=== PATIENT | male | born 1975 | race African-American/Black ===

== ENCOUNTER 2018-08-03 02:19 | Inpatient (IN) | payer BC ==
[2018-08-03 02:44] LABS: #Basophils 0.1 thou/uL (0.0-0.2); #Eosinphils 0.3 thou/uL (0.0-0.7); #Lymphocytes 4.5 thou/uL (1.20-3.40); #Monocytes 0.9 thou/uL (0.11-0.59); #Neutrophils 5.6 thou/uL (1.40-6.50); %Basophils 1.3 % (0.0-1.0); %Eosinophils 2.8 % (0.0-10.0); %Lymphocytes 39.2 % (21.0-51.0); %Neutrophils 48.7 % (42.0-75.0); Hemoglobin 16.1 g/dL (14.0-18.0); Mean Corpuscular Hemoglobin 29.1 pg (27.0-31.0); Mean Corpuscular Volume 88.2 fL (78.0-98.0); Mean Platelet Volume 7.9 fL (7.4-10.4); Platelet Count 213 thou/uL (130-400); RBC Distribution Width 13.4 % (11.5-14.5); Red Blood Cell (RBC) Count 5.54 mill/uL (4.70-6.10); White Blood Cell (WBC) Count 11.6 thou/uL (4.8-10.8)
[2018-08-03 03:06] LABS: ALT (SGPT) 43 U/L (8-55); AST (SGOT) 32 U/L (5-34); Albumin 4.6 g/dL (3.5-5.0); Alkaline Phosphatase 102 U/L (40-150); Anion Gap 13 mmol/L (10-20); BUN (Urea Nitrogen) 12 mg/dL (8.9-20.6); Bilirubin, Total 0.4 mg/dL (0.2-1.2); CK (CPK) 1022 U/L (30-200); Calc. Creatinine Clearance 0 mL/min (70-130); Calcium 9.6 mg/dL (7.8-10.44); Carbon Dioxide 26 mmol/L (22-29); Chloride 105 mmol/L (98-107); Estimated GFR-MDRD 81; Globulin 3.3 g/dL (2.4-3.5); Glucose 95 mg/dL (70-105); Lipase 44 U/L (8-78); Potassium 3.9 mmol/L (3.5-5.1); Protein, Total 7.9 g/dL (6.0-8.3); Sodium 140 mmol/L (136-145)
[2018-08-03 03:11] LABS: CKMB 4.4 ng/mL (0-6.6); Troponin I Less than 0.010 ng/mL (< 0.028)
[2018-08-03 03:48] LABS: PTT 35.7 SEC (22.9-36.1); Prothrombin Time 13.2 SEC (12.0-14.7)
[2018-08-03] MEDS ORDERED: Labetalol HCl 100 MG/20 ML VIAL ONE (04:32)
[2018-08-03] MEDS ORDERED: Ondansetron HCl/PF 4 MG/2 ML Vial IVP PRN (05:36)
[2018-08-03] MEDS ORDERED: Ondansetron ODT 4 MG TAB PO PRN (05:36)
[2018-08-03] MEDS ORDERED: Acetaminophen 325 MG TAB PO PRN (05:36)
[2018-08-03] MEDS ORDERED: Nitroglycerin 50 MG/250 ML BOT 250 ML IVPB SCH (05:45)
[2018-08-03 05:54] LABS: Troponin I Less than 0.010 ng/mL (< 0.028)
[2018-08-03 06:52] VITALS: BMI 37.0
--- NOTE | 2018-08-03 06:55 | HP ---
CHIEF COMPLAINT: Chest pain. HISTORIAN: The patient and patient's . HISTORY OF PRESENT ILLNESS: This is a 42-year-old male with no significant past medical history, pre senting to our ED with chief complaint of chest pain, which radiates to the left arm with tingling an d numbness in the arm and the patient is also complaining of double vision, the symptoms started abou t an hour ago. 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 Upon arrival , the patient was sent to CT and after coming out of the CT, patient was found to have weakness in th e left arm and left leg. Due to this, patient was given tPA in the ED and patient's blood pressure w as monitored in the ED to make sure the diastolic blood pressure is less than 110. I was called to e valuate the patient at that time. At this time, patient denies any fever, nausea, vomiting, chest pa in, but admits to having some weakness of the left upper extremity and left lower extremity. Of note , the patient states that he has been having bloody bowel movements about 2 weeks ago, which got wors e and filled out the toilet bowl every time that he went. REVIEW OF SYSTEMS: Positive for left arm, left leg weakness, double vision, chest pain, otherwise as documented in the HPI, all other systems were reviewed and were negative. PAST MEDICAL HISTORY: No significant past medical history. FAMILY HISTORY: The patient states that his uncles had diabetes, hypertension. Mom has cancer. PAST SURGICAL HISTORY: No surgical history. PSYCHIATRIC HISTORY: The patient does not document any psych history. SOCIAL HISTORY: Patient drinks occasionally. Patient quit a while back, he was a former smoker. Ken rosalvaralph does not do any illicit drugs. PHYSICAL EXAMINATION: VITAL SIGNS: By the bedside, patient's blood pressure was 153/110, pulse was 64, respiratory rate of 16, temperature of 97.8, oxygen saturation of 98 on room air. GENERAL: Patient is lying in bed comfortably, does not appear to be in acute distress. The patient is speaking full sentences. HEENT: Normocephalic, atraumatic. Pupils are equal, round, and reactive to light. Extraocular move ments are intact. The patient did have some blood noted in his oral mucosa. Mucous membranes are mo ist. NECK: No JVD. Trachea is midline. LUNGS: Clear to auscultation bilaterally. No wheezing, no rales appreciated. CARDIOVASCULAR: Positive S1, S2. Regular rate and rhythm. No murmurs, no gallops, no rubs apprecia ramirez. ABDOMEN: Obese abdomen, nontender, nondistended. No ecchymosis, no peritoneal signs. EXTREMITIES: Lower extremity: The patient did have some leg weakness at the left lower extremity. The patient is not able to elevate the leg. The patient is able to elevate the left upper extremity, has 4/5 strength in the upper extremities. Otherwise, the patient did have 5/5 right upper extremit y strength and right lower extremity strength. The patient did have good pulses bilaterally. NEUROLOGIC: Cranial nerves II through XII grossly intact. There are no focal neurologic deficits no ramirez. PSYCHIATRIC: Alert, oriented x3, and normal affect. LABORATORY DATA: White count is 11.6, hemoglobin is 16.1, platelet is 213,000. Glucose is 91. Lipa se 44. CPK is 1022. Sodium 140, potassium 3.9, chloride 105, carbon dioxide of 26, creatinine of 1. 20, glucose of 95. PTT is 35.7. INR is 1.0. Troponin is less than 0.010, CK-MB is 4.4. IMAGING: CT of the brain ordered, there is no read at this time, but upon me reading it, patient castaneda s not have any ischemic or any hemorrhagic stroke noted. We will follow up on the official read. Ch est x-ray, no acute cardiopulmonary process, we will await official read. ASSESSMENT AND PLAN: This is a 42-year-old male being admitted for; 1. Left arm weakness and left leg weakness with some numbness and tingling sensation. At this point , we will rule out stroke. The patient has been given tPA. We will admit the patient to ICU to be m onitored. I have ordered a nitro drip to be given if patient's blood pressure is above 185/110. We will try and titrate and maintain blood pressure, so that diastolic is going to be less than 110 and we will keep the blood pressure between 140-185. I have put in the parameters in nursing communicati on. We will continue to monitor the patient very closely with consulting Neurology. We will follow up per neurologist's recommendation of started atorvastatin per protocol and we will start patient on aspirin to be given tomorrow since tPA has already been given at this time. We will monitor the pat ient for any signs of bleed and I have ordered for MRA with angio. We will continue to monitor the p atient very, very closely, neuro checks, seizure precautions per protocol, consulted the stroke team. 2. Deep venous thrombosis and gastrointestinal prophylaxis. We will do sequential compression devic es and will do Pepcid for gastrointestinal prophylaxis.
--- NOTE | 2018-08-03 07:28 | RAD ---
AP VIEW CHEST: Date: 08/03/18 INDICATION: 42-year-old male with chest pain. COMPARISON: None. FINDINGS: The lungs are clear. Cardiomediastinal silhouette is within normal limits. No acute osseous abnormali ty is evident. IMPRESSION: No acute cardiopulmonary abnormality. POS: [facility]
--- NOTE | 2018-08-03 07:49 | CON ---
DATE OF CONSULTATION: 08/03/2018 REASON FOR CONSULTATION: Stroke. HISTORY OF PRESENT ILLNESS: The patient is a 42-year-old male who presented with left arm and left l eg weakness yesterday which started about an hour prior to admission to the hospital. He was given t -PA around 4:30 a.m. this morning. He was placed in the ICU per protocol. Initially he was hyperten sive, but his blood pressures trended down. He is currently not on a drip. He denies any previous h istory of hypertension, heart disease or diabetes mellitus. PAST MEDICAL HISTORY: Essentially negative. ALLERGIES: None. SOCIAL HISTORY: Occasionally drinks alcohol. Denies tobacco abuse. Denies illicit drugs. FAMILY MEDICAL HISTORY: He denies a stroke. REVIEW OF SYSTEMS: Remarkable for the arm weakness. PHYSICAL EXAMINATION: VITAL SIGNS: Blood pressure currently 131/86, pulse 58, O2 sat 98%, respiratory rate 17. HEENT: His pupils are equally reactive to light. Tongue protrudes midline. No evidence of facial d felix on either side. NECK: No adenopathy or JVD. No carotid bruits noted. CARDIOVASCULAR: S1, S2 regular without audible murmur. LUNGS: Clear without wheezing or rhonchi. ABDOMEN: Soft, nontender, nondistended. EXTREMITIES: No clubbing, cyanosis, or edema. NEUROLOGIC: Cranial nerves II-XII are grossly intact. He has 3/5 motor strength left arm and left l eg, 5/5 motor strength right arm and right leg. LABORATORY AND X-RAY FINDINGS: Sodium 140, potassium 3.9, BUN 12, creatinine 1.2, glucose 95. CPK 1 022. Troponin 0.01. INR is 1.0, PTT 35.7, white blood cell 11.6, hematocrit 48.9, platelet count 21 3. Chest x-ray showed no evidence of mass, effusion, or infiltrate. Result of the brain CT is pending. ASSESSMENT: 1. 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 2. Hypertension. PLAN: 1. Continue to observe in the ICU. Initiate physical therapy and stroke rehab. 2. Would not use nitroglycerin drip for blood pressure control. If anything is needed, then I would suggest nicardipine. 3. Start IV fluids, given the patient's CPK is elevated. 4. Check urine drug screen to rule out cocaine use.
--- NOTE | 2018-08-03 08:55 | CT ---
PRELIMINARY REPORT/[facility]/EMERGENTY AFTER-HOURS PROCEDURE Addendum created by Paul Snow MD on 08/03/2018 4:04 AM Central Time ([place] & [place]) THIS REPORT CONTAINS FINDINGS THAT MAY BE CRITICAL TO PATIENT CARE. The findings were verbally commun icated via telephone conference with SHAREE WILLS at 4:04 AM CDT on 08/03/2018. The findings were a cknowledged and understood. Initial Report created on 08/03/2018 3:59 AM Central Time ([place] & [place]) CT Angiography Head With Intravenous Contrast CLINICAL HISTORY: 42 years old, male; Signs and symptoms; Weakness; Patient HX: stroke alert chest pain began aroun d 0100, patients left arm and leg were tingling, increased left sided weakness and left sided facial droop around 0315 TECHNIQUE: Axial computed tomographic angiography images of the head with intravenous contrast using CT angiogra phy protocol. MIP reconstructed images were created and reviewed. Coronal and sagittal reformatted images were created and reviewed. COMPARISON: No relevant prior studies available. FINDINGS: Right internal carotid artery: No acute findings. Intracranial segment is patent with no significant stenosis. No aneurysm. Right anterior cerebral artery: Normal. No occlusion or significant stenosis. No aneurysm. Right middle cerebral artery: Normal. No occlusion or significant stenosis. No aneurysm. Right posterior cerebral artery: Normal. No occlusion or significant stenosis. No aneurysm. Right vertebral artery: Normal as visualized. Left internal carotid artery: No acute findings. Intracranial segment is patent with no significant s tenosis. No aneurysm. Left anterior cerebral artery: Normal. No occlusion or significant stenosis. No aneurysm. Left middle cerebral artery: Normal. No occlusion or significant stenosis. No aneurysm. Left posterior cerebral artery: Normal. No occlusion or significant stenosis. No aneurysm. Left vertebral artery: Normal as visualized. Basilar artery: Normal. No occlusion or significant stenosis. No aneurysm. IMPRESSION: Normal head CTA. CT Angiography Neck With Intravenous Contrast TECHNIQUE: Axial computed tomographic angiography images of the neck with intravenous contrast using CT angiogra phy protocol. MIP reconstructed images were created and reviewed. Coronal and sagittal reformatted images were created and reviewed. COMPARISON: CT Brain WO Con 08/03/2018 2:42 AM FINDINGS: VASCULATURE: Right common carotid artery: Normal. No significant stenosis. No dissection or occlusion. Right internal carotid artery: Normal. Extracranial segment is patent with no significant stenosis. N o dissection or occlusion. Right external carotid artery: Normal. No occlusion. Right vertebral artery: Normal. No significant stenosis. No dissection or occlusion. Left common carotid artery: Normal. No significant stenosis. No dissection or occlusion. Left internal carotid artery: Normal. Extracranial segment is patent with no significant stenosis. No dissection or occlusion. Left external carotid artery: Normal. No occlusion. Left vertebral artery: Normal. No significant stenosis. No dissection or occlusion. NECK: Bones/joints: No acute fracture. No dislocation. Soft tissues: Normal as visualized. No mass. CAROTID STENOSIS REFERENCE USING NASCET CRITERIA: % ICA stenosis = (1 - narrowest ICA diameter/diameter of distal cervical ICA) x 100. Mild - <50% stenosis. Moderate - 50-69% stenosis. Severe - 70-94% stenosis. Near occlusion - 95-99% stenosis. Occluded - 100% stenosis. IMPRESSION: Normal neck CTA. Thank you for allowing us to participate in the care of your patient. Dictated and Authenticated by: Paul Snow MD 08/03/2018 3:59 AM Central Time ([place] & [place]) FINAL REPORT CT ANGIOGRAM OF HEAD CT ANGIOGRAM OF NECK: Date: 08/03/18 HISTORY: Left arm and leg tingling. Left-sided weakness and left facial droop. COMPARISON: None. TECHNIQUE: CT angiogram of the head and neck are performed in the axial plane. Three-dimensional reformatted roshan ges are submitted for interpretation. FINDINGS: This report is in agreement with the preliminary report by Eliza. No evidence of significant stenosis of the cervical carotid arteries based upon NASCET criteria. The [place] is unremarkable. No significant stenosis or vascular occlusion. POS: [facility]
--- NOTE | 2018-08-03 08:56 | CT ---
PRELIMINARY REPORT/[facility]/EMERGENTY AFTER-HOURS PROCEDURE CT Head Without Intravenous Contrast CLINICAL HISTORY: 42 years old, male; Signs and symptoms; Visual disturbance; Patient HX: Pt reports chest pain with do uble vision and left side tingling since 0100 TECHNIQUE: Axial computed tomography images of the head/brain without intravenous contrast. COMPARISON: No relevant prior studies available. FINDINGS: Brain: Normal. Ventricles: Normal. Bones/joints: Normal. No acute fracture. Soft tissues: Normal. Sinuses: Normal. Mastoid air cells: Normal as visualized. No mastoid effusion. IMPRESSION: Normal head/brain CT. Thank you for allowing us to participate in the care of your patient. Dictated and Authenticated by: Paul Snow MD 08/03/2018 3:19 AM Central Time ([place] & [place]) FINAL REPORT HEAD CT WITHOUT CONTRAST: Date: 08/03/18 HISTORY: Chest pain. Left arm and leg tingling. TECHNIQUE: Noncontrast head CT performed from skull base to skull vertex. FINDINGS: This report is in agreement with the preliminary report by Eliza. No acute intracranial process. POS: [facility]
[2018-08-03] MEDS: Sodium Chloride 0.45% 1,000 ML IV SCH ×2 (09:00→17:18)
[2018-08-03] MEDS: Aspirin 81 mg Enteric Coated Tablet PO SCH (09:01)
[2018-08-03 09:05] LABS: Troponin I Less than 0.010 ng/mL (< 0.028)
[2018-08-03] MEDS ORDERED: Labetalol HCl 100 MG/20 ML VIAL SLOW IVP PRN ×2 (10:26→17:07)
[2018-08-03 12:51] LABS: Amphetamine Not Detected (NotDetected); Barbiturates Screen Not Detected (NotDetected); Benzodiazepine Screen Not Detected (NotDetected); Cocaine Metabolite Screen Not Detected (NotDetected); Medtox Control Line Valid? VALID (VALID); Medtox Reader # READER 1; Methadone Not Detected (NotDetected); Methamphetamine Not Detected (NotDetected); Opiate Screen Not Detected (NotDetected); Oxycodone Screen Not Detected (NotDetected); Phencyclidine (PCP) Not Detected (NotDetected); THC/Cannabinoid Screen Not Detected (NotDetected); Tricyclic Screen Not Detected (NotDetected)
--- NOTE | 2018-08-03 13:08 | MRI ---
BRAIN MRI WITHOUT CONTRAST: Date: 08/03/18 HISTORY: Transit ischemic attack. Chest pain. Double vision. Left-sided tingling. COMPARISON: None. FINDINGS: No hemorrhage on the axial gradient echo sequence. Calvarium has a normal T1 marrow signal intensity. Midline brain parenchymal structures are unremarkable. No parenchymal mass, mass effect, or midline shift. Brain volume is age-appropriate. Cortical gonzalez-white matter differentiation is preserved. Vent ricles and sulci are patent and symmetric. Mild mucosal thickening in the paranasal sinuses. Adequate mastoid air cell aeration. There are no significant T2 or FLAIR white matter hyperintensities. No ev idence of hydrocephalus. Central arterial flow-voids are maintained. Absent restricted diffusion. IMPRESSION: No evidence of an infarct. POS: [facility]
[2018-08-03] MEDS ORDERED: Communication Order-Pharmacy FS ONE (17:07)
[2018-08-03] MEDS ORDERED: NO ANTITHROMBOTICS FS SCH (17:15)
--- NOTE | 2018-08-03 17:16 | PDOC.PN ---
- Subjective Encounter Start Date: 08/03/18 Encounter Start Time: 12:30 Subjective: pt up in bed complains of left side weakness - Objective Resuscitation Status: Resuscitation Status FULL:Full Resuscitation Vital Signs & Weight: Vital Signs (12 hours) Temp BP Pulse Ox 08/03/18 16:00 98 F 08/03/18 15:08 146/89 H 08/03/18 12:00 98.5 F 08/03/18 08:00 98 F 100 08/03/18 07:00 98 F Weight Weight 296 lb 8.348 oz Most Recent Monitor Data Heart Rate from ECG 71 NIBP 146/89 NIBP BP-Mean 108 Respiration from ECG 14 SpO2 96 I&O: 08/02/18 08/03/18 08/04/18 06:59 06:59 06:59 Intake Total 200 Output Total 490 Balance -290 Result Diagrams: 08/03/18 02:32 08/03/18 02:32 Additional Labs: Accuchecks 08/03/18 02:36 POC Glucose 91 Phys Exam - Physical Examination Respiratory: no wheezing, no rales, no rhonchi, wheezing present, clear to auscultation bilateral Cardiovascular: RRR, no significant murmur, no rub, gallop, irregular Gastrointestinal: soft, non-tender, no distention, positive bowel sounds Musculoskeletal: no edema, pulses present, edema present left upper ext and left lower ext weakness Dx/Plan (1) Left-sided weakness Code(s): R53.1 - WEAKNESS Status: Acute (2) Hypertension Code(s): I10 - ESSENTIAL (PRIMARY) HYPERTENSION Status: Acute (3) Obesity Code(s): E66.9 - OBESITY, UNSPECIFIED Status: Acute - Plan pt s/p tpa last night still has some left side residual weakness -: pt's MRI brain and CTA negative for acute stroke -: will continue statin and hold asa for today -: elevated ck will recheck, echo ef of 50-55% * . Review of Systems - Review of Systems Respiratory: negative: Cough, Dry, Shortness of Breath, Hemoptysis, SOB with Excertion, Pleuritic Pain, Sputum, Wheezing Cardiovascular: negative: chest pain, palpitations, orthopnea, paroxysmal nocturnal dyspnea, edema, light headedness, other Gastrointestinal: negative: Nausea, Vomiting, Abdominal Pain, Diarrhea, Constipation, Melena, Hematochezia, Other Genitourinary: negative: Dysuria, Frequency, Incontinence, Hematuria, Retention , Other Neurological: Weakness Other: left upper and left lower ext - Medications/Allergies Allergies/Adverse Reactions: Allergies Allergy/AdvReac Type Severity Reaction Status Date / Time No Known Allergies Allergy Verified 08/03/18 06:47 Medications: Current Medications Acetaminophen (Tylenol) 650 mg PO Q4H PRN PRN Reason: Headache/Fever or Pain Aspirin (Ecotrin) 81 mg PO DAILY [facility] Last Admin: 08/03/18 09:01 Dose: 81 mg Atorvastatin Calcium (Lipitor) 80 mg PO HS [facility] Sodium Chloride (1/2 Normal Saline) 1,000 mls @ 100 mls/hr IV .Q10H [facility] Last Admin: 08/03/18 09:00 Dose: 1,000 mls Nicardipine HCl 25 mg/ Sodium (Chloride) 260 mls @ 0 mls/hr IV INF PRN; Protocol PRN Reason: SBP > 180 OR DBP > 105 Nicardipine HCl 25 mg/ Sodium (Chloride) 260 mls @ 0 mls/hr IVPB INF PRN; Protocol PRN Reason: SBP > 180 or DBP > 105 Labetalol HCl (Normodyne) 10 mg SLOW IVP Q2H PRN PRN Reason: SBP > 180 or DBP > 105 Labetalol HCl (Normodyne) 10 mg SLOW IVP Q2H PRN PRN Reason: SBP > 180 or DBP > 105 Miscellaneous Information (Communication Order-Pharmacy) 1 each FS NOW ONE Stop: 08/03/18 17:08 Ondansetron HCl (Zofran Odt) 4 mg PO Q6H PRN PRN Reason: Nausea/Vomiting Ondansetron HCl (Zofran) 4 mg IVP Q6H PRN PRN Reason: Nausea/Vomiting Sodium Chloride (Flush - Normal Saline) 10 ml IVF PRN PRN PRN Reason: Saline Flush
[2018-08-03] MEDS ORDERED: Atorvastatin Calcium 40 MG TAB PO SCH (21:00)
--- NOTE | 2018-08-03 22:03 | CON ---
DATE OF CONSULTATION: 08/03/2018 CONSULTING PHYSICIAN: Hospitalist Service. IMPRESSION: 1. Transient ischemic attack with transient left-sided numbness and weakness. 2. Probable hypertension. PLAN: 1. Aspirin 81 mg per day. 2. Low-dose statin. 3. Address blood pressure issues. 4. The patient will be discharged home tomorrow. HISTORY OF PRESENT ILLNESS: Mr. Kang is a 42-year-old black gentleman, who was working nights when he suddenly developed some numbness in his left hand. Noticed that it spread to the left leg. He w ent home and told his about it. They have decided to come up to the hospital and have it checke d out. He started developing some progressive weakness, where he had difficulty raising his arm or l eg off the bed. His CT and CTA were both negative. They elected to give him TPA last night. His sy mptoms continued until earlier this afternoon when they seemingly have completely resolved. He had a n MRI of the brain done today, which did not reveal any acute ischemic changes. His echocardiogram s howed an ejection fraction of 55%-60%. His CPK was elevated at 1022. Tox screen was negative. He d enies any history of tobacco or illicit drug use. ALLERGIES: None reported. SOCIAL HISTORY: As noted. MEDICATIONS: None. REVIEW OF SYSTEMS: No complaint of headache, nausea, vomiting, vertigo. Positive for some transient chest pain. PHYSICAL EXAMINATION: GENERAL: He is a somewhat overweight middle-aged man in no distress. VITAL SIGNS: Blood pressure 126/94, pulse 58, respirations 22, saturations 96%. He was initially qu ite hypertensive on arrival with a diastolic pressure of 112. HEENT: Pupils equal and reactive. Conjunctivae clear. Oropharynx clear. NECK: Supple. EXTREMITIES: No cyanosis, clubbing, or edema. NEUROLOGIC: He is alert and appropriate. His speech is fluent and clear. There are no focal defici ts present. Gait is not testable. EKG shows a sinus rhythm. SUMMARY: A 42-year-old gentleman with some transient left arm and leg weakness and numbness suggesti ng the possibility of a TIA. His MRI failed to reveal any ischemic changes. This usually predicts a good prognosis. I would plan on routine stroke prophylaxis.
[2018-08-04 06:03] LABS: #Basophils 0.1 thou/uL (0.0-0.2); #Eosinphils 0.3 thou/uL (0.0-0.7); #Lymphocytes 3.6 thou/uL (1.20-3.40); #Monocytes 0.8 thou/uL (0.11-0.59); #Neutrophils 5.3 thou/uL (1.40-6.50); %Basophils 1.1 % (0.0-1.0); %Eosinophils 2.7 % (0.0-10.0); %Lymphocytes 35.8 % (21.0-51.0); %Monocytes 7.8 % (0.0-10.0); %Neutrophils 52.7 % (42.0-75.0); Hemoglobin 15.4 g/dL (14.0-18.0); Mean Corpuscular HGB CONC 33.5 g/dL (32.0-36.0); Mean Corpuscular Hemoglobin 29.4 pg (27.0-31.0); Mean Corpuscular Volume 87.8 fL (78.0-98.0); Mean Platelet Volume 7.9 fL (7.4-10.4); Platelet Count 210 thou/uL (130-400); RBC Distribution Width 13.3 % (11.5-14.5); Red Blood Cell (RBC) Count 5.23 mill/uL (4.70-6.10); White Blood Cell (WBC) Count 10.1 thou/uL (4.8-10.8)
[2018-08-04 06:17] LABS: Hemoglobin A1c 6.1 % (4.0-6.0)
[2018-08-04] MEDS: Sodium Chloride 0.45% 1,000 ML IV SCH (06:18)
[2018-08-04 06:31] LABS: Anion Gap 10 mmol/L (10-20); BUN (Urea Nitrogen) 10 mg/dL (8.9-20.6); Calc. Creatinine Clearance 185 mL/min (70-130); Calcium 8.6 mg/dL (7.8-10.44); Carbon Dioxide 23 mmol/L (22-29); Cardiac Risk 5.4 (Less than 4.5); Chloride 108 mmol/L (98-107); Cholesterol 184 mg/dl (< 200 Desired); Estimated GFR-MDRD Greater than 90; Glucose 87 mg/dL (70-105); HDL Cholesterol 34 mg/dL (>60 Neg Risk); LDL Cholesterol, Calculated 133 mg/dL; Potassium 3.6 mmol/L (3.5-5.1); Sodium 137 mmol/L (136-145); Triglycerides 83 mg/dL (Less than 150)
--- NOTE | 2018-08-04 08:11 | PRG ---
DATE OF SERVICE: 08/04/2018 Mr. Kang is doing well. He has completely recovered all of his neurologic deficits. He has no com plaints. PHYSICAL EXAMINATION: VITAL SIGNS: Temperature is 98.1, pulse 59, blood pressure 136/80. HEENT: No cranial nerve deficits. NECK: No JVD. LUNGS: Clear. CARDIOVASCULAR: S1, S2 regular. ABDOMEN: Soft, nontender. EXTREMITIES: No edema. NEUROLOGIC: He has a nonfocal exam bilaterally compared to yesterday. LABORATORY: White blood cell count 10.1, hematocrit 45.9, platelet count 210. Sodium 137, potassium 3.6, chloride 108, CO2 of 23, BUN 10, creatinine 1.0, glucose 87. ASSESSMENT: Likely an acute middle cerebral artery distribution transient ischemic attack that resol aurora with t-PA administration. PLAN: This patient can be transferred out to the stroke unit. I think he is likely on course to go home by tomorrow. Neurology has seen the patient and they have recommended aspirin and low dose stat ins. He also needs to have his blood pressure aggressively controlled.
[2018-08-04] MEDS: Aspirin 81 mg Enteric Coated Tablet PO SCH (09:29)
[2018-08-04 10:42] VITALS: BP 138/90
[2018-08-04 12:57] VITALS: TEMP 98
--- NOTE | 2018-08-04 14:44 | DIS ---
DATE OF ADMISSION: 08/03/2018 DATE OF DISCHARGE: 08/04/2018 DISCHARGE DIAGNOSES: 1. Transient ischemic attack. 2. Obesity. 3. Prediabetic. HOSPITAL COURSE: The patient is a very pleasant 42-year-old male, who initially presented to the [facility] with chest pain and also some left-sided weakness. The patient, at this time, was taken into a CAT scan where he started having significant left-sided upper and lower extremity weakness. Patient 's initial CT head was negative for any significant stroke. He also had a CTA of the head and neck, which did not indicate any acute ischemia. Patient, at that time, was given TPA, and he was then adm itted to the ICU for further evaluation. The following day, the patient had a brain MRI, which appea red to be normal. The patient also was seen by Neurology and also an echocardiogram was ordered. Ec hocardiogram indicated an EF of 55%-60% with [id number] regurgitation and mild tricuspid regurg itation. The patient was found to be hypertensive initially when he came in; however, throughout the hospital stay, his blood pressures have been in the 130s/80s systolic. He did have a hemoglobin A1c of 6.1. He did have elevated LDL and mild elevation of his cholesterol. Discussed with the patient in length about diet and weight loss and modifications. We will start patient on aspirin and a stat in. He was asked to follow up with his primary care doctor. The patient also will need a sleep stud y since he does snore. I have put him on a low-dose lisinopril for now and he will again follow up w ith his PCP as an outpatient and his is a nurse, so I have instructed them to check the blood pr essure once in a while. MEDICATIONS: Lisinopril 10 mg daily, atorvastatin 40 mg at bedtime, aspirin 81 mg daily. There was some mention that the patient was having bloody stools; however, he did not have any in the hospital and his hemoglobin was stable. Patient also had a UDS done, which was negative. PHYSICAL EXAMINATION: VITAL SIGNS: Temperature of 98.0, blood pressure 136/80, pulse 52, respirations 16. GENERAL: He is awake, alert, oriented x3, does not appear in distress. CARDIOVASCULAR: S1 and S2 present. No murmurs, rubs, or gallops. ABDOMEN: Soft and nontender. Bowel sounds are present x2. EXTREMITIES: No edema. Physical examination, in terms of neurovascular, his left-sided weakness has improved dramatically an d he is able to walk without any assistance. The patient will be discharged home. He will follow up again with his primary.
== END 2018-08-04 16:55 | disposition home or self-care (01) | DRG 62 ==
LOC: ERS 02:19 → CCU 06:02
PROVIDERS: ADMIT Internal Medicine; ATTEND Internal Medicine
DX: G45.9 Transient cerebral ischemic attack, unspecified (principal); G81.94 Hemiplegia, unspecified affecting left nondominant side; E66.9 Obesity, unspecified; Z68.37 Body mass index [BMI] 37.0-37.9, adult; R73.03 Prediabetes; I10 Essential (primary) hypertension
CPT/HCPCS: 36415; 36416; 70450; 70496; 70498; 70551; 71045; 80048; 80053; 80061; 80306; 82550; 82553; 83036; 83690; 84484; 85025; 85610; 85730; 93005; 93306; G8978-GP-CN; G8979-GP-CK; G8987-GO-CJ; G8988-GO-CI; G8996-GN-CH; G8997-GN-CH; J2997; J7050